=== PATIENT | male | born 1965 | race American Indian/Alaskan Native ===

== ENCOUNTER 2016-10-18 23:39 | Inpatient (IN) | payer OTHER ==
[~2016-10-18] VITALS: Ht 170.2 cm; Wt 73.3 kg
--- NOTE | 2016-10-18 23:42 | ERA ---
ER Documentation Chief Complaint Date/Time DATE: 10/18/16 TIME: 23:41 Chief Complaint Suicidal ideation HPI The patient is a 51-year-old male, presenting to the ER because of suicidal ideation. He took 28 tablets of Seroquel 300 mg with alcohol about 45 minutes prior to arrival to kill himself. He was recently hospitalized at psychiatric hospital about 2 weeks ago for suicidal ideation. He denies headache, neck pain , chest pain, dyspnea, abdominal pain, vomiting, dysuria, diarrhea. He denies auditory, visual hallucination, homicidal ideation. He smokes, drinks, denies illicit Past medical history: Bipolar, seizure disorder Past surgical history:None ROS All systems reviewed and are negative except as per history of present illness. Allergies Allergies: Coded Allergies: No Known Allergy (Unverified , 10/19/16) Physical Exam Vitals Vital Signs Date Time Temp Pulse Resp B/P Pulse Ox O2 Delivery O2 Flow Rate FiO2 10/19/16 04:20 98.4 84 20 118/80 100 Room Air 10/19/16 02:32 81 17 122/77 97 Room Air 10/18/16 23:52 98.4 73 20 148/93 100 Physical Exam Const: No acute distress. Head: Atraumatic. Eyes: Normal Conjunctiva. ENT: Normal External Ears, Nose and Mouth. Neck: Full range of motion. No meningismus. Resp: Clear to auscultation bilaterally. Cardio: Regular rate and rhythm, no murmurs. Abd: Soft, non distended, normal bowel sounds, non tender. Skin: No petechiae or rashes. Back: No midline or flank tenderness. Ext: No cyanosis, or edema. Neur: Awake and alert. No focal deficit Psych: Depressed and suicidal Result Diagram: 10/19/16 0001 10/19/16 0001 Results 24 hrs Laboratory Tests Test 10/19/16 00:01 10/19/16 00:10 White Blood Count 9.010^3/ul Red Blood Count 4.3810^6/ul Hemoglobin 13.7g/dl Hematocrit 38.9% Mean Corpuscular Volume 88.8fl Mean Corpuscular Hemoglobin 31.3pg Mean Corpuscular Hemoglobin Concent 35.2g/dl Red Cell Distribution Width 12.7% Platelet Count 76389^3/UL Mean Platelet Volume 9.9fl Neutrophils % 76.7% Lymphocytes % 17.3% Monocytes % 3.5% Eosinophils % 2.0% Basophils % 0.3% Nucleated Red Blood Cells % 0.0/100WBC Neutrophils # 6.910^3/ul Lymphocytes # 1.610^3/ul Monocytes # 0.310^3/ul Eosinophils # 0.210^3/ul Basophils # 0.010^3/ul Nucleated Red Blood Cells # 0.010^3/ul Prothrombin Time 12.2Sec Prothrombin Time Ratio 1.0 INR International Normalized Ratio 0.91 Activated Partial Thromboplast Time 24.1Sec Sodium Level 137mmol/L Potassium Level 3.9mmol/L Chloride Level 102mmol/L Carbon Dioxide Level 24mmol/L Anion Gap 15 Blood Urea Nitrogen 15mg/dl Creatinine 0.65mg/dl Glucose Level 96mg/dl Calcium Level 8.9mg/dl Total Bilirubin 0.1mg/dl Direct Bilirubin 0.00mg/dl Indirect Bilirubin 0.1mg/dl Aspartate Amino Transf (AST/SGOT) 32IU/L Alanine Aminotransferase (ALT/SGPT) 47IU/L Alkaline Phosphatase 73IU/L Total Protein 7.4g/dl Albumin 4.2g/dl Globulin 3.20g/dl Albumin/Globulin Ratio 1.31 Salicylates Level < 1.0mg/dl Acetaminophen Level < 10.0ug/ml Ethyl Alcohol Level 39.0mg/dl Urine Color LT. YELLOW Urine Clarity CLEAR Urine pH 5.5 Urine Specific [place] 1.010 Urine Ketones NEGATIVE Urine Nitrite NEGATIVE Urine Bilirubin NEGATIVE Urine Urobilinogen 0.2 E.U./dL Urine Leukocyte Esterase NEGATIVE Urine Microscopic RBC 5-10/HPF Urine Microscopic WBC 0-2/HPF Urine Hemoglobin 1+ Urine Glucose NEGATIVE% Urine Total Protein NEGATIVE Urine Opiates Screen Negative Urine Barbiturates Negative Phenytoin (Dilantin) Level 13.2ug/ml Urine Amphetamines Screen Negative Urine Benzodiazepines Screen Negative Urine Cocaine Screen Negative Urine Cannabinoids Negative Current Medications Medications (Trade) Dose Ordered Sig/Valdo Route PRN Reason Start Time Stop Time Status Last Admin Dose Admin Charcoal/Sorbitol (Actidose (Sorbitol)) 50 gm ONCE ONCE PO 10/19/16 00:00 10/19/16 00:01 DC 10/19/16 00:04 Ondansetron HCl (Zofran Inj) 4 mg ONCE STAT IV 10/18/16 23:43 10/18/16 23:44 DC 10/19/16 00:04 Ondansetron HCl (Zofran Inj) 4 mg STK-MED ONCE .ROUTE 10/18/16 23:45 10/18/16 23:46 DC Procedures/MDM EKG: Read by emergency physician 11:58 PM Rate/Rhythm: Normal Sinus Rhythm 74 beats/min QRS, ST, T-waves: No ST elevation, no T inversion Impression: normal EKG EKG: Read by emergency physician 1:04 AM Rate/Rhythm: Normal Sinus Rhythm 79 beats/min QRS, ST, T-waves: No ST elevation, no T inversion Impression: normal EKG MEDICAL MAKING DECISION: The patient is a 51-year-old male, presenting with acute intestinal overdose of Seroquel, acute suicidal ideation, acute alcohol abuse. He was treated immediately with charcoal 50 g p.o. upon arrival, 1 L normal saline, Zofran 4 mg IV with good response. The differential diagnoses considered include but are not limited to decompensated psychiatric illness, drug-induced psychosis, psychosis, anxiety, depression Consultation: I discussed the patient with poison control who recommended admission for observation Departure Diagnosis: Primary Impression: Intentional drug overdose Additional Impressions: Suicide attempt by substance overdose Alcohol abuse Anemia Condition: Stable Comments I discussed the findings with the patient. I discussed the patient with the on- call hospitalist Dr. Silva. who was made aware of the lab, the treatment, the patient condition. The patient is admitted to telemetry The patient's blood pressure was elevated (>120/80) but appears stable without evidence of hypertension emergency or urgency. The patient was counseled about the risks of hypertension and urged to pursue outpatient monitoring and therapy within a week with their primary care physician. CASANDRA OAKLEY MD Oct 18, 2016 23:42
[2016-10-18] MEDS ORDERED: ONDANSETRON 4 MG INJ IV STA (23:43)
[2016-10-18] MEDS ORDERED: ONDANSETRON 4 MG INJ ONE (23:45)
[2016-10-19] VITALS (11 sets, daily range): BP systolic 140–162; BP diastolic 73–79; PULSE 57–74; RESP 17–20; TEMP 98.4; Ht 170.2 cm; Wt 73.3 kg
[2016-10-19] MEDS ORDERED: CHARCOAL/SORBITOL 50 GM/240 ML BTL PO ONE
[2016-10-19 00:14] LABS: ADD SCAN DIFF NO; BASOPHILS % 0.3 % (0.0-2.0); EOSINOPHILS # 0.2 10^3/ul (0.0-0.5); HEMATOCRIT 38.9 % (42.0-52.0); HEMOGLOBIN 13.7 g/dl (14.0-18.0); LYMPHOCYTES # 1.6 10^3/ul (0.8-2.9); LYMPHOCYTES % 17.3 % (15.0-51.0); MEAN CORPUSCULAR HEMOGLOBIN 31.3 pg (29.0-33.0); MEAN CORPUSCULAR HGB CONC 35.2 g/dl (32.0-37.0); MEAN CORPUSCULAR VOLUME 88.8 fl (82.0-101.0); MEAN PLATELET VOLUME 9.9 fl (7.4-10.4); MONOCYTE # 0.3 10^3/ul (0.3-0.9); MONOCYTES % 3.5 % (0.0-11.0); NEUTROPHIL # 6.9 10^3/ul (1.6-7.5); NEUTROPHILS % 76.7 % (39.0-77.0); PLATELET COUNT 177 10^3/UL (140-415); RED BLOOD COUNT 4.38 10^6/ul (4.70-6.10); RED CELL DISTRIBUTION WIDTH 12.7 % (11.5-14.5)
[2016-10-19 00:25] LABS: ADD UMIC YES; URINE BILIRUBIN (Dip) NEGATIVE (NEGATIVE); URINE BLOOD (Dip) 1+ (NEGATIVE); URINE COLOR LT. YELLOW (YELLOW); URINE GLUCOSE (Dip) NEGATIVE (NEGATIVE); URINE KETONES (Dip) NEGATIVE (NEGATIVE); URINE LEUKOCYTE ESTERASE (Dip) NEGATIVE (NEGATIVE); URINE NITRITE (Dip) NEGATIVE (NEGATIVE); URINE TOTAL PROTEIN (Dip) NEGATIVE (NEGATIVE); URINE UROBILINOGEN (Dip) 0.2 E.U./dL (0.1-1.0)
[2016-10-19 00:28] LABS: INR 0.91; PROTIME 12.2 Sec (12.2-14.2)
[2016-10-19 00:29] LABS: PARTIAL THROMBOPLASTIN TIME 24.1 Sec (25.0-35.0)
[2016-10-19 00:58] LABS: ALBUMIN 4.2 g/dl (3.3-4.9)
[2016-10-19 00:59] LABS: CHLORIDE 102 mmol/L (97-110); POTASSIUM 3.9 mmol/L (3.5-5.1); SODIUM 137 mmol/L (135-144)
[2016-10-19 01:01] LABS: ALBUMIN/GLOBULIN RATIO 1.31; ANION GAP 15 (8-16); ASPARTATE AMINO TRANSFERASE 32 IU/L (15-46); BILIRUBIN,INDIRECT 0.1 mg/dl (0-1.1); BILIRUBIN,TOTAL 0.1 mg/dl (0.2-1.3); CARBON DIOXIDE 24 mmol/L (21-31); CREATININE 0.65 mg/dl (0.61-1.24); TOTAL PROTEIN 7.4 g/dl (6.1-8.1)
[2016-10-19 01:02] LABS: ALANINE AMINOTRANSFERASE 47 IU/L (13-69); ALKALINE PHOSPHATASE 73 IU/L (42-121); BLOOD UREA NITROGEN 15 mg/dl (7-20); CALCIUM 8.9 mg/dl (8.4-10.2); GLUCOSE 96 mg/dl (70-220)
[2016-10-19 01:09] LABS: ACETAMINOPHEN < 10.0 ug/ml (10.0-30.0); SALICYLATE < 1.0 mg/dl (5.0-30.0)
[2016-10-19 01:10] LABS: BARBITURATES Negative (NEGATIVE); BENZODIAZEPINES Negative (NEGATIVE); CANNABINOIDS Negative (NEGATIVE); COCAINE Negative (NEGATIVE); OPIATES Negative (NEGATIVE)
[2016-10-19] MEDS ORDERED: ACETAMINOPHEN 650 MG SUPP PR PRN (07:30)
[2016-10-19] MEDS ORDERED: NACL 0.9% 3 ML SYG IV SCH (07:30)
[2016-10-19] MEDS ORDERED: ONDANSETRON 4 MG INJ IV PRN (07:30)
[2016-10-19] MEDS ORDERED: PHEN300C4 PO (08:37)
[2016-10-19] MEDS ORDERED: MIRT30TA5 PO (08:37)
[2016-10-19] MEDS ORDERED: RISP2TAB3 PO (08:37)
[2016-10-19] MEDS ORDERED: ATOR10TA65 PO (08:37)
[2016-10-19] MEDS ORDERED: GABA-526 PO (08:43)
[2016-10-19] MEDS ORDERED: CITA20TA6 PO (08:43)
[2016-10-19] MEDS ORDERED: IBUP-1542 PO (08:43)
[2016-10-19] MEDS ORDERED: LISI10TA2 PO (08:43)
[2016-10-19] MEDS ORDERED: QUET300T13 PO (08:43)
[2016-10-19] MEDS: DEXTROSE 5%-0.45% NACL 1,000 ML IV SCH ×3 (09:58→20:36)
[2016-10-19] MEDS: FAMOTIDINE 20 MG INJ IV SCH ×2 (09:58→20:35)
--- NOTE | 2016-10-19 10:54 | RADRPT ---
PROCEDURE: XR Chest. CLINICAL INDICATION: Chest pain TECHNIQUE: PA and lateral chest x-ray. COMPARISON: None. FINDINGS: No acute infiltrate, pleural effusion or pneumothorax is identified. The cardiomediastinal silhouet te is unremarkable. The osseous structures are unremarkable. IMPRESSION: 1. No evidence of acute cardiopulmonary process. RPTAT: QQ .Mikey Valencia MD, MD Date Time Electronically viewed and signed by .Mikey Valencia MD, on 10/19/2016 10:54 .R/
[2016-10-19] MEDS ORDERED: ACETAMINOPHEN 325 MG TAB PO PRN (14:00)
[2016-10-19] MEDS: MIRTAZAPINE 15 MG TAB PO PRN (20:33)
--- NOTE | 2016-10-19 23:11 | HP ---
Date/Time of Note Date/Time of Note DATE: 10/19/16 TIME: 23:11 Assessment/Plan VTE Prophylaxis VTE Prophylaxis Intervention: SCD's Lines/Catheters IV [facility]ter Type (from [facility] Peripheral IV Urinary Cath still in place: No Assessment/Plan Assessment/Plan IMPRESSION 1. Suicide Attempt 2. Bipolar Disorder 3. Depression 4. HTN PLAN 1:1 sitter Telepsych consult Monitor labs and vitals closely Transfer to inpt psych facility when medically cleared HPI/ROS Admit Date/Time Admit Date/Time Oct 19, 2016 at 02:14 Hx of Present Illness The patient is a 51-year-old male, presenting to the ER because of suicidal ideation. He took 28 tablets of Seroquel 300 mg with alcohol about 45 minutes prior to arrival to kill himself. He was recently hospitalized at psychiatric hospital about 2 weeks ago for suicidal ideation. He denies headache, neck pain , chest pain, dyspnea, abdominal pain, vomiting, dysuria, diarrhea. He denies auditory, visual hallucination, homicidal ideation. He smokes, drinks, denies illicit PMH/Family/Social Social History Smoking Status: Current every day smoker Exam/Review of Systems Vital Signs Vitals Vital Signs Date Time Temp Pulse Resp B/P Pulse Ox O2 Delivery O2 Flow Rate FiO2 10/19/16 20:23 68 10/19/16 18:56 98.6 20 154/77 97 10/19/16 06:15 Room Air Exam Constitutional: other (Sleepy, but arousable. No distress) Psych: depression, suicidal Eyes: EOMI, PERRL Respiratory: clear to auscultation, normal air movement Cardiovascular: nl pulses, regular rate and rhythm Gastrointestinal: non-tender, soft Extremities: normal pulses Labs Result Diagram: 10/19/16 0001 10/19/16 0001 Medications Medications Current Medications Dextrose/Sodium Chloride (D5-1/2ns) 1,000 ml @ 100 mls/hr Q10H IV Last administered on 10/19/16t 20:36; Admin Dose 100 MLS/HR; Start 10/19/16 at 07:29 Ondansetron HCl (Zofran Inj) 4 mg Q6H PRN IV NAUSEA AND/OR VOMITING; Start 10/19 at 07:30 Acetaminophen (Tylenol Supp) 650 mg Q6H PRN [place] PAIN LEVEL 1-3 OR FEVER; Start 10/19/16 at 07:30 Famotidine (Pepcid Iv) 20 mg Q12 IV Last administered on 10/19/16 20:35; Admin Dose 20 MG; Start 10/19/16 at 09:00 Acetaminophen (Tylenol Tab) 650 mg Q4H PRN PO PAIN AND OR ELEVATED TEMP Last administered on 10/19/16 14:12; Admin Dose 650 MG; Start 10/19/16 at 14:00 Mirtazapine (Remeron) 30 mg QHS PRN PO SLEEP Last administered on 10/19/16 20: 33; Admin Dose 30 MG; Start 10/19/16 at 20:30 JOHN DUNBAR MD Oct 19, 2016 23:11
[2016-10-20] VITALS (7 sets, daily range): BP systolic 104–155; BP diastolic 58–84; PULSE 53–77; RESP 19–20
[2016-10-20 07:39] LABS: ADD SCAN DIFF NO
[2016-10-20 07:48] LABS: BASOPHILS % 0.3 % (0.0-2.0); EOSINOPHILS # 0.2 10^3/ul (0.0-0.5); EOSINOPHILS % 2.8 % (0.0-7.0); HEMOGLOBIN 14.1 g/dl (14.0-18.0); LYMPHOCYTES # 1.4 10^3/ul (0.8-2.9); MEAN CORPUSCULAR HEMOGLOBIN 30.7 pg (29.0-33.0); MEAN CORPUSCULAR HGB CONC 34.4 g/dl (32.0-37.0); MEAN CORPUSCULAR VOLUME 89.1 fl (82.0-101.0); MONOCYTE # 0.5 10^3/ul (0.3-0.9); MONOCYTES % 7.1 % (0.0-11.0); NEUTROPHIL # 4.6 10^3/ul (1.6-7.5); NEUTROPHILS % 68.5 % (39.0-77.0); PLATELET COUNT 197 10^3/UL (140-415); WHITE BLOOD COUNT 6.7 10^3/ul (4.8-10.8)
[2016-10-20 08:25] LABS: ALBUMIN 3.7 g/dl (3.3-4.9)
[2016-10-20 08:26] LABS: POTASSIUM 4.1 mmol/L (3.5-5.1)
[2016-10-20 08:28] LABS: ALBUMIN/GLOBULIN RATIO 1.27; BILIRUBIN,INDIRECT 0.2 mg/dl (0-1.1); BILIRUBIN,TOTAL 0.2 mg/dl (0.2-1.3); CREATININE 0.71 mg/dl (0.61-1.24); PHOSPHORUS 3.4 mg/dl (2.5-4.9); TOTAL PROTEIN 6.6 g/dl (6.1-8.1)
[2016-10-20 08:29] LABS: CALCIUM 8.8 mg/dl (8.4-10.2); MAGNESIUM 1.9 mg/dl (1.7-2.5)
[2016-10-20] MEDS: FAMOTIDINE 20 MG INJ IV SCH ×2 (09:00→20:43)
--- NOTE | 2016-10-20 13:10 | PSY ---
Date/Time of Note Date/Time of Note DATE: 10/20/16 TIME: 16:04 Psychiatric Subjective Eval Consent Pt consented to telemedicine: Yes Subjective Evaluation Patient location: inpatient Chief Complaint: Intentional Intake of Medication, SI History of present illness The patient is a 51 yo male with a self reported ho bipolar do and schizophrenia. He is in the hospital s/p a suicide attempt via OD on seroquel. He reports persistent thoughts to kill self, as well as AH. He is currently not taking any psych meds (besides remeron prn insomnia). Past Psych Hx: Reports numerous admits and suicide attempts. Reports risperidone has helped the most in the past PMHx: epilepsy Meds: now just prnmeds All: none Medical history Problems Medical Problems: (1) Alcohol abuse Status: Acute (2) Anemia Status: Acute (3) Intentional drug overdose Status: Acute (4) Suicide attempt by substance overdose Status: Acute Allergies: Coded Allergies: No Known Allergy (Unverified , 10/19/16) Psychiatric Objective Eval Mental Status Examination: Appearance: Disheveled Eye Contact: Good Psychomotor Activity: Normal Behavior: Cooperative Speech: Clear AFFECT: Blunt Mood: Depressed Though Process: Linear Thought Content: Normal Suicidal: Yes Homicidal: No On 72 hour hold: Yes Orientation: x3 Cognition: Alert Insight: Impared Judgement: Impared Attention Span: Intact Laboratory Results Laboratory Tests Test 10/19/16 00:01 10/19/16 00:10 10/20/16 07:06 White Blood Count 9.010^3/ul 6.710^3/ul Red Blood Count 4.3810^6/ul 4.6010^6/ul Hemoglobin 13.7g/dl 14.1g/dl Hematocrit 38.9% 41.0% Mean Corpuscular Volume 88.8fl 89.1fl Mean Corpuscular Hemoglobin 31.3pg 30.7pg Mean Corpuscular Hemoglobin Concent 35.2g/dl 34.4g/dl Red Cell Distribution Width 12.7% 13.0% Platelet Count 53592^3/UL 66171^3/UL Mean Platelet Volume 9.9fl 10.0fl Neutrophils % 76.7% 68.5% Lymphocytes % 17.3% 21.0% Monocytes % 3.5% 7.1% Eosinophils % 2.0% 2.8% Basophils % 0.3% 0.3% Nucleated Red Blood Cells % 0.0/100WBC 0.0/100WBC Neutrophils # 6.910^3/ul 4.610^3/ul Lymphocytes # 1.610^3/ul 1.410^3/ul Monocytes # 0.310^3/ul 0.510^3/ul Eosinophils # 0.210^3/ul 0.210^3/ul Basophils # 0.010^3/ul 0.010^3/ul Nucleated Red Blood Cells # 0.010^3/ul 0.010^3/ul Prothrombin Time 12.2Sec Prothrombin Time Ratio 1.0 INR International Normalized Ratio 0.91 Activated Partial Thromboplast Time 24.1Sec Sodium Level 137mmol/L 138mmol/L Potassium Level 3.9mmol/L 4.1mmol/L Chloride Level 102mmol/L 106mmol/L Carbon Dioxide Level 24mmol/L 24mmol/L Anion Gap 15 12 Blood Urea Nitrogen 15mg/dl 13mg/dl Creatinine 0.65mg/dl 0.71mg/dl Glucose Level 96mg/dl 98mg/dl Calcium Level 8.9mg/dl 8.8mg/dl Total Bilirubin 0.1mg/dl 0.2mg/dl Direct Bilirubin 0.00mg/dl 0.00mg/dl Indirect Bilirubin 0.1mg/dl 0.2mg/dl Aspartate Amino Transf (AST/SGOT) 32IU/L 22IU/L Alanine Aminotransferase (ALT/SGPT) 47IU/L 36IU/L Alkaline Phosphatase 73IU/L 71IU/L Total Protein 7.4g/dl 6.6g/dl Albumin 4.2g/dl 3.7g/dl Globulin 3.20g/dl 2.90g/dl Albumin/Globulin Ratio 1.31 1.27 Salicylates Level < 1.0mg/dl Acetaminophen Level < 10.0ug/ml Ethyl Alcohol Level 39.0mg/dl Urine Color LT. YELLOW Urine Clarity CLEAR Urine pH 5.5 Urine Specific [place] 1.010 Urine Ketones NEGATIVE Urine Nitrite NEGATIVE Urine Bilirubin NEGATIVE Urine Urobilinogen 0.2 E.U./dL Urine Leukocyte Esterase NEGATIVE Urine Microscopic RBC 5-10/HPF Urine Microscopic WBC 0-2/HPF Urine Hemoglobin 1+ Urine Glucose NEGATIVE% Urine Total Protein NEGATIVE Urine Opiates Screen Negative Urine Barbiturates Negative Phenytoin (Dilantin) Level 13.2ug/ml Urine Amphetamines Screen Negative Urine Benzodiazepines Screen Negative Urine Cocaine Screen Negative Urine Cannabinoids Negative Phosphorus Level 3.4mg/dl Magnesium Level 1.9mg/dl Assessment and Plan Assessment/Diagnosis [place] I: bipolar do, psychosis nos r/o schizophrenia Recommendation/Plan Medication Management 51 yo male s/p suicide attempt via OD on seroquel. He still has suicidal thoughts and is psychotic and depressed. No lindsey.He is in good control. He appears to have mentally recovered from seroquel OD (in terms of alertness etc.) Plan: -Would first start antiepileptic givne low risk of antipsychotic lowering seizure threshold -would then begin antipsychotic, for now would prefer abilify 2.5mg for 2d then 5mg, then 10mg after 2 days if he can tolerate this dose -for severe agitation. Abilify 9.75mg IM, q2 hours prn, max 3 doses in 24 hours -continue 1:1 constant observation, admit to inpatient psych CHANTELL SHELDON Oct 20, 2016 13:10
[2016-10-20] MEDS ORDERED: LEVETIRACETAM 500 MG (PMX) 100 ML IVPB SCH (13:30)
[2016-10-20] MEDS: ARIPIPRAZOLE 5 MG TAB PO SCH (14:17)
[2016-10-20] MEDS: DEXTROSE 5%-0.45% NACL 1,000 ML IV SCH ×4 (15:29→23:29)
[2016-10-20] MEDS: PHENYTOIN 100 MG CAP PO SCH (20:43)
[2016-10-20] MEDS: MIRTAZAPINE 15 MG TAB PO PRN (20:43)
[2016-10-21 06:03] LABS: ADD SCAN DIFF NO
[2016-10-21 06:10] LABS: BASOPHILS % 0.6 % (0.0-2.0); EOSINOPHILS # 0.2 10^3/ul (0.0-0.5); EOSINOPHILS % 4.5 % (0.0-7.0); HEMATOCRIT 41.1 % (42.0-52.0); HEMOGLOBIN 14.1 g/dl (14.0-18.0); LYMPHOCYTES # 1.1 10^3/ul (0.8-2.9); LYMPHOCYTES % 31.4 % (15.0-51.0); MEAN CORPUSCULAR HEMOGLOBIN 30.5 pg (29.0-33.0); MEAN CORPUSCULAR HGB CONC 34.3 g/dl (32.0-37.0); MEAN CORPUSCULAR VOLUME 88.8 fl (82.0-101.0); MEAN PLATELET VOLUME 10.4 fl (7.4-10.4); MONOCYTE # 0.3 10^3/ul (0.3-0.9); MONOCYTES % 9.2 % (0.0-11.0); NEUTROPHIL # 1.9 10^3/ul (1.6-7.5); RED BLOOD COUNT 4.63 10^6/ul (4.70-6.10); RED CELL DISTRIBUTION WIDTH 12.9 % (11.5-14.5); WHITE BLOOD COUNT 3.6 10^3/ul (4.8-10.8)
[2016-10-21 06:21] LABS: ALBUMIN 3.9 g/dl (3.3-4.9)
[2016-10-21 06:22] LABS: POTASSIUM 4.1 mmol/L (3.5-5.1)
[2016-10-21 06:24] LABS: ALBUMIN/GLOBULIN RATIO 1.39; BILIRUBIN,INDIRECT 0.3 mg/dl (0-1.1); BILIRUBIN,TOTAL 0.3 mg/dl (0.2-1.3); CREATININE 0.69 mg/dl (0.61-1.24); TOTAL PROTEIN 6.7 g/dl (6.1-8.1)
[2016-10-21 06:25] LABS: CALCIUM 9.2 mg/dl (8.4-10.2)
[2016-10-21 08:29] LABS: PLATELET COUNT 123 10^3/UL (140-415)
[2016-10-21 08:30] LABS: ADD SCAN DIFF NO; BASOPHILS % 0.4 % (0.0-2.0); EOSINOPHILS # 0.2 10^3/ul (0.0-0.5); EOSINOPHILS % 4.2 % (0.0-7.0); HEMATOCRIT 44.2 % (42.0-52.0); HEMOGLOBIN 14.9 g/dl (14.0-18.0); LYMPHOCYTES # 1.3 10^3/ul (0.8-2.9); LYMPHOCYTES % 25.1 % (15.0-51.0); MEAN CORPUSCULAR HEMOGLOBIN 30.2 pg (29.0-33.0); MEAN CORPUSCULAR HGB CONC 33.7 g/dl (32.0-37.0); MEAN CORPUSCULAR VOLUME 89.7 fl (82.0-101.0); MEAN PLATELET VOLUME 10.2 fl (7.4-10.4); MONOCYTE # 0.5 10^3/ul (0.3-0.9); MONOCYTES % 9.7 % (0.0-11.0); NEUTROPHIL # 3.2 10^3/ul (1.6-7.5); NEUTROPHILS % 60.4 % (39.0-77.0); PLATELET COUNT 186 10^3/UL (140-415); RED BLOOD COUNT 4.93 10^6/ul (4.70-6.10); RED CELL DISTRIBUTION WIDTH 13.1 % (11.5-14.5); WHITE BLOOD COUNT 5.3 10^3/ul (4.8-10.8)
[2016-10-21] MEDS: PHENYTOIN 100 MG CAP PO SCH ×3 (08:44→21:30)
[2016-10-21] MEDS: ARIPIPRAZOLE 5 MG TAB PO SCH (08:44)
[2016-10-21] MEDS: DEXTROSE 5%-0.45% NACL 1,000 ML IV SCH ×2 (08:48→19:29)
[2016-10-21] MEDS: FAMOTIDINE 20 MG INJ IV SCH (08:48)
--- NOTE | 2016-10-21 09:23 | PN ---
DATE: 10/20/2016 SUBJECTIVE: The patient just finished evaluation by tele psychiatrist. No acute events overnight. On diet now. OBJECTIVE: VITAL SIGNS: Stable. PHYSICAL EXAMINATION: GENERAL: The patient is lying in bed, no acute distress. HEENT: Pupils equal, round, reactive to light. Extraocular muscles intact. NECK: Supple, no thyromegaly. LUNGS: Clear to auscultation bilaterally. CARDIOVASCULAR: S1, S2 heard. No rubs or gallops. ABDOMEN: Soft, nontender, nondistended. Normal bowel sounds. No rebound or guarding. MUSCULOSKELETAL: No lower extremity edema bilaterally. NEUROLOGIC: No focal deficits. LABORATORY DATA: Metabolic panel was normal. CBC is normal. ASSESSMENT AND PLAN: This is a 51-year-old male with prior history of bipolar disorder, depression and hypertension who presented with suicide ideation after drug overdose. 1. Suicide attempt suicide ideation is status post overdose. The patient appears more alert now. Continue follow recommendations from both tele neurologist and also from Poison Control. The patien t is on IV fluids. Follow up labs in the morning. 2. History of bipolar disorder again. The patient was consciously put back on Remeron. Continue t o monitor for now. Follow up with psychiatry recommendations. 3. History of hypertension. Blood pressure stable. Continue current medications for now. Add Hyd ralazine p.r.n. 4. Gastrointestinal prophylaxis. Pepcid. 5. Deep venous thrombosis prophylaxis. Sequential compression devices. We will continue to follow . Dictated By: GM LAIRD Conf#: [id number] DID#: [id number]
--- NOTE | 2016-10-21 11:55 | PN ---
Date/Time of Note Date/Time of Note DATE: 10/21/16 TIME: 11:54 Assessment/Plan VTE Prophylaxis VTE Prophylaxis Intervention: SCD's Lines/Catheters [facility] Peripheral IV Urinary Cath still in place: No Assessment/Plan Assessment/Plan 1. Suicide attempt suicide ideation is status post overdose. The patient appears more alert now. Continue follow recommendations from both tele neurologist and also from Poison Control. The patient is on IV fluids. Follow up labs in the morning. 2. History of bipolar disorder again. The patient was consciously put back on Remeron. Continue to monitor for now. Follow up with psychiatry recommendations. 3. History of hypertension. Blood pressure stable. Continue current medications for now. Add Hydralazine p.r.n. 4. Gastrointestinal prophylaxis. Pepcid. 5. Deep venous thrombosis prophylaxis. Sequential compression devices. We will continue to follow. Subjective 24 Hr Interval Summary Free Text/Dictation stable, no acute events overnight Exam/Review of Systems Vital Signs Vitals Vital Signs Date Time Temp Pulse Resp B/P Pulse Ox O2 Delivery O2 Flow Rate FiO2 10/20/16 15:36 98.3 62 20 139/82 97 10/19/16 06:15 Room Air Intake and Output 10/20/16 10/20/16 10/21/16 15:00 23:00 07:00 Intake Total 700 ml 2230 ml Balance 700 ml 2230 ml Exam GENERAL: The patient is lying in bed, no acute distress. HEENT: Pupils equal, round, reactive to light. Extraocular muscles intact. NECK: Supple, no thyromegaly. LUNGS: Clear to auscultation bilaterally. CARDIOVASCULAR: S1, S2 heard. No rubs or gallops. ABDOMEN: Soft, nontender, nondistended. Normal bowel sounds. No rebound or guarding. MUSCULOSKELETAL: No lower extremity edema bilaterally. NEUROLOGIC: No focal deficits. Results Result Diagram: 10/21/16 0725 10/21/16 0520 Results 24 hrs Laboratory Tests Test 10/21/16 05:20 10/21/16 07:25 Sodium Level 138 Potassium Level 4.1 Chloride Level 103 Carbon Dioxide Level 24 Anion Gap 15 Blood Urea Nitrogen 11 Creatinine 0.69 Glucose Level 87 Calcium Level 9.2 Total Bilirubin 0.3 Direct Bilirubin 0.00 Indirect Bilirubin 0.3 Aspartate Amino Transf (AST/SGOT) 22 Alanine Aminotransferase (ALT/SGPT) 34 Alkaline Phosphatase 78 Total Protein 6.7 Albumin 3.9 Globulin 2.80 Albumin/Globulin Ratio 1.39 White Blood Count 5.3 # Red Blood Count 4.93 Hemoglobin 14.9 Hematocrit 44.2 Mean Corpuscular Volume 89.7 Mean Corpuscular Hemoglobin 30.2 Mean Corpuscular Hemoglobin Concent 33.7 Red Cell Distribution Width 13.1 Platelet Count 186 # Mean Platelet Volume 10.2 Neutrophils % 60.4 Lymphocytes % 25.1 Monocytes % 9.7 Eosinophils % 4.2 Basophils % 0.4 Nucleated Red Blood Cells % 0.0 Neutrophils # 3.2 Lymphocytes # 1.3 Monocytes # 0.5 Eosinophils # 0.2 Basophils # 0.0 Nucleated Red Blood Cells # 0.0 Medications Medications Current Medications Dextrose/Sodium Chloride (D5-1/2ns) 1,000 ml @ 100 mls/hr Q10H IV Last administered on 10/20/16 15:51; Admin Dose 100 MLS/HR; Start 10/19/16 at 07:29 Ondansetron HCl (Zofran Inj) 4 mg Q6H PRN IV NAUSEA AND/OR VOMITING; Start 10/19 at 07:30 Acetaminophen (Tylenol Supp) 650 mg Q6H PRN [place] PAIN LEVEL 1-3 OR FEVER; Start 10/19/16 at 07:30 Famotidine (Pepcid Iv) 20 mg Q12 IV Last administered on 10/20/16 20:43; Admin Dose 20 MG; Start 10/19/16 at 09:00 Acetaminophen (Tylenol Tab) 650 mg Q4H PRN PO PAIN AND OR ELEVATED TEMP Last administered on 10/19/16 14:12; Admin Dose 650 MG; Start 10/19/16 at 14:00 Mirtazapine (Remeron) 30 mg QHS PRN PO SLEEP Last administered on 10/20/16 20: 43; Admin Dose 30 MG; Start 10/19/16 at 20:30 Aripiprazole (Abilify) 2.5 mg DAILY PO Last administered on 10/21/16 08:44; Admin Dose 2.5 MG; Start 10/20/16 at 13:30; Stop 10/22/16 at 10:30 Aripiprazole (Abilify) 5 mg DAILY PO ; Start 10/23/16 at 09:00; Stop 10/25/16 at 08:00 Aripiprazole (Abilify) 10 mg DAILY PO ; Start 10/25/16 at 09:00 Miscellaneous Information Patients own medicat... BID@ XX ; Start 10/20/16 at 16:00 Phenytoin (Dilantin) 100 mg TID PO Last administered on 10/21/16t 08:44; Admin Dose 100 MG; Start 10/20/16 at 21:00 MARITA SANTO MD Oct 21, 2016 11:55
[2016-10-21] MEDS ORDERED: FAMOTIDINE 20 MG TAB PO SCH (21:00)
--- NOTE | 2016-10-22 23:33 | DS ---
DATE OF ADMISSION: 10/19/2016 DATE OF DISCHARGE: 10/21/2016 Please note that the patient was eloped on 10/21/2016 at 10:50 p.m. HOSPITAL COURSE: This is a 51-year-old male who has a past medical history of bipolar disorder, dep ression and hypertension. The patient presented with worsening depression symptoms and intentional suicidal overdose. He took 28 tablets of Seroquel 300 mg with alcohol about 45 minutes prior to the arrival. He was recently hospitalized at the psychiatric hospital 2 weeks ago for suicidal ideatio n. The patient denies any other complaints. He was hemodynamically stable. His labs were also unr emarkable. He gets admitted to the med/surg floor where he had a psychiatric evaluation. The patient was in the process of setting up a mental health transfer. He also had a 1:1 sitter, but o n 10/21/2016 in the after-hours around 10 p.m. the patient was eloped from the floor. DISPOSITION: Please note that the patient is eloped from the floor during this hospitalization. Charge nurse and the nursing supervisor floor assembly has been informed by the on-call nurse at that time. Please note that the patient is eloped during this hospitalization in after hours at 10 p.m. on 09/2016. Dictated By: MARITA SANTO MD, KP/NTS Conf#: [id number] DID#: [id number] CC: JOHN DUNBAR MD;*EndCC*
[2016-10-23] MEDS ORDERED: ARIPIPRAZOLE 5 MG TAB PO SCH (09:00)
[2016-10-25] MEDS ORDERED: ARIPIPRAZOLE 10 MG TAB PO SCH (09:00)
== END 2016-10-21 22:05 | disposition left against medical advice (07) | DRG 918 ==
LOC: E/R 23:39 → MS4 10-19 02:14 → MS2 10-19 05:48
PROVIDERS: ADMIT Internal Medicine; ATTEND Internal Medicine
DX: T43.592A Poisoning by other antipsychotics and neuroleptics, intentional self-harm, initial encounter (principal); R45.851 Suicidal ideations; Y92.89 Other specified places as the place of occurrence of the external cause; G40.909 Epilepsy, unspecified, not intractable, without status epilepticus; D64.9 Anemia, unspecified; F32.9 Major depressive disorder, single episode, unspecified; I10 Essential (primary) hypertension; F17.210 Nicotine dependence, cigarettes, uncomplicated; F10.10 Alcohol abuse, uncomplicated; Y90.1 Blood alcohol level of 20-39 mg/100 ml
CPT/HCPCS: 36415; 71020; 80053; 80185; 80306; 80307; 81001; 81003; 83735; 84100; 85025; 85610; 85730; 93005; 96374; J1953; J2405; J7042

== ENCOUNTER 2016-10-25 07:23 | Emergency (ER) | payer OTHER ==
[~2016-10-25] VITALS: Ht 170.2 cm; Wt 70.0 kg
[~2016-10-25 07:23] MED LIST: ATOR10TA65 PO; CITA20TA6 PO; GABA-526 PO; IBUP-1542 PO; LISI10TA2 PO; MIRT30TA5 PO; PHEN300C4 PO; QUET300T13 PO; RISP2TAB3 PO
[2016-10-25 07:29] VITALS: Ht 170.2 cm; Wt 70.0 kg
[2016-10-25] MEDS ORDERED: CHARCOAL/SORBITOL 50 GM/240 ML BTL PO ONE (08:00)
[2016-10-25 08:17] LABS: ADD SCAN DIFF NO
[2016-10-25 08:25] LABS: ADD UMIC YES; URINE BILIRUBIN (Dip) NEGATIVE (NEGATIVE); URINE BLOOD (Dip) 1+ (NEGATIVE); URINE COLOR LT. YELLOW (YELLOW); URINE GLUCOSE (Dip) NEGATIVE (NEGATIVE); URINE KETONES (Dip) NEGATIVE (NEGATIVE); URINE LEUKOCYTE ESTERASE (Dip) NEGATIVE (NEGATIVE); URINE NITRITE (Dip) NEGATIVE (NEGATIVE); URINE TOTAL PROTEIN (Dip) TRACE (NEGATIVE); URINE UROBILINOGEN (Dip) 0.2 E.U./dL (0.1-1.0)
[2016-10-25 08:27] LABS: BASOPHILS % 0.3 % (0.0-2.0); EOSINOPHILS # 0.3 10^3/ul (0.0-0.5); EOSINOPHILS % 4.5 % (0.0-7.0); HEMATOCRIT 41.2 % (42.0-52.0); HEMOGLOBIN 14.6 g/dl (14.0-18.0); LYMPHOCYTES # 1.5 10^3/ul (0.8-2.9); LYMPHOCYTES % 25.4 % (15.0-51.0); MEAN CORPUSCULAR HEMOGLOBIN 31.4 pg (29.0-33.0); MEAN CORPUSCULAR HGB CONC 35.4 g/dl (32.0-37.0); MEAN CORPUSCULAR VOLUME 88.6 fl (82.0-101.0); MEAN PLATELET VOLUME 10.7 fl (7.4-10.4); MONOCYTE # 0.5 10^3/ul (0.3-0.9); MONOCYTES % 8.6 % (0.0-11.0); NEUTROPHIL # 3.7 10^3/ul (1.6-7.5); PLATELET COUNT 239 10^3/UL (140-415); RED BLOOD COUNT 4.65 10^6/ul (4.70-6.10); RED CELL DISTRIBUTION WIDTH 12.9 % (11.5-14.5)
[2016-10-25 08:39] LABS: BARBITURATES Negative (NEGATIVE)
[2016-10-25 08:43] LABS: ALBUMIN 4.5 g/dl (3.3-4.9); CHLORIDE 101 mmol/L (97-110); SODIUM 137 mmol/L (135-144)
[2016-10-25 08:44] LABS: BENZODIAZEPINES Negative (NEGATIVE); CANNABINOIDS Negative (NEGATIVE); COCAINE Negative (NEGATIVE); OPIATES Negative (NEGATIVE)
[2016-10-25 08:44] LABS: POTASSIUM 4.2 mmol/L (3.5-5.1)
[2016-10-25 08:45] LABS: CREATININE 0.67 mg/dl (0.61-1.24)
[2016-10-25 08:46] LABS: ALANINE AMINOTRANSFERASE 42 IU/L (13-69); ALBUMIN/GLOBULIN RATIO 1.36; ALKALINE PHOSPHATASE 88 IU/L (42-121); ANION GAP 17 (8-16); ASPARTATE AMINO TRANSFERASE 55 IU/L (15-46); BILIRUBIN,INDIRECT 0.7 mg/dl (0-1.1); BILIRUBIN,TOTAL 0.7 mg/dl (0.2-1.3); BLOOD UREA NITROGEN 16 mg/dl (7-20); CARBON DIOXIDE 23 mmol/L (21-31); GLUCOSE 103 mg/dl (70-220); TOTAL PROTEIN 7.8 g/dl (6.1-8.1)
[2016-10-25 08:52] LABS: ACETAMINOPHEN < 10.0 ug/ml (10.0-30.0); ETHANOL < 10.0 mg/dl; SALICYLATE < 1.0 mg/dl (5.0-30.0)
[2016-10-25 09:25] LABS: ALBUMIN 4.3 g/dl (3.3-4.9); BILIRUBIN,INDIRECT 0.5 mg/dl (0-1.1); BILIRUBIN,TOTAL 0.5 mg/dl (0.2-1.3); TOTAL PROTEIN 7.6 g/dl (6.1-8.1)
--- NOTE | 2016-10-25 13:18 | PSY ---
Date/Time of Note Date/Time of Note DATE: 10/25/16 TIME: 13:13 Psychiatric Subjective Eval Consent Pt consented to telemedicine: Yes Subjective Evaluation Patient location: emergency Chief Complaint: pt bib self with c/o took 26 seroquel at 645 , admits to SI History of present illness 51 yo homeless unemployed male, ob parole, self presenting to ED stating, he took an OD of 30 tabs of Seroquel 300 mg at 7 am. Pt is awake and alert, which makes this story somewhat questionable. He says, he is still depressed and suicidal and hears voices "sometimes". Pt is on Risperidal, Seroquel and Trazodone. he had a similar presentation a day ago but eloped. He denies hi, vh. Says, he feels paranoid. UDS + meth Past psychiatric history multiple inpt Hospitalization: Suicidal Attempt(s) Medical history Problems Medical Problems: (1) Alcohol abuse Status: Acute (2) Anemia Status: Acute (3) Intentional drug overdose Status: Acute (4) Suicide attempt by substance overdose Status: Acute Allergies: Coded Allergies: No Known Allergy (Unverified , 10/25/16) Substance Abuse Substance abuse history: Yes Prior substance abuse treatmen: Yes Social History Marital status: single Level of education: 9th grade DPA/Conservatorship: No Occupation/Alf: unemployed; on parole Psychiatric Objective Eval Review of Systems: Review of Systems: Not Applicable Physical Examination: Physical Examination: Not Applicable Mental Status Examination: Appearance: Disheveled Eye Contact: Good Psychomotor Activity: Normal Behavior: Cooperative Speech: Clear AFFECT: Guarded Mood: Irritable Though Process: Linear Thought Content: Hallucinations Suicidal: Yes Homicidal: No On 72 hour hold: No Orientation: x4 Cognition: Alert Insight: Impared Judgement: Impared Laboratory Results Laboratory Tests Test 10/25/16 07:58 10/25/16 08:00 Urine Color LT. YELLOW Urine Clarity CLEAR Urine pH 5.5 Urine Specific [place] 1.025 Urine Ketones NEGATIVE Urine Nitrite NEGATIVE Urine Bilirubin NEGATIVE Urine Urobilinogen 0.2 E.U./dL Urine Leukocyte Esterase NEGATIVE Urine Microscopic RBC 2-5/HPF Urine Microscopic WBC 0-2/HPF Urine Epithelial Cells RARE Urine Hemoglobin 1+ Urine Glucose NEGATIVE% Urine Total Protein TRACE Urine Opiates Screen Negative Urine Barbiturates Negative Urine Amphetamines Screen POSITIVE Urine Benzodiazepines Screen Negative Urine Cocaine Screen Negative Urine Cannabinoids Negative White Blood Count 6.010^3/ul Red Blood Count 4.6510^6/ul Hemoglobin 14.6g/dl Hematocrit 41.2% Mean Corpuscular Volume 88.6fl Mean Corpuscular Hemoglobin 31.4pg Mean Corpuscular Hemoglobin Concent 35.4g/dl Red Cell Distribution Width 12.9% Platelet Count 38286^3/UL Mean Platelet Volume 10.7fl Neutrophils % 61.0% Lymphocytes % 25.4% Monocytes % 8.6% Eosinophils % 4.5% Basophils % 0.3% Nucleated Red Blood Cells % 0.0/100WBC Neutrophils # 3.710^3/ul Lymphocytes # 1.510^3/ul Monocytes # 0.510^3/ul Eosinophils # 0.310^3/ul Basophils # 0.010^3/ul Nucleated Red Blood Cells # 0.010^3/ul Sodium Level 137mmol/L Potassium Level 4.2mmol/L Chloride Level 101mmol/L Carbon Dioxide Level 23mmol/L Anion Gap 17 Blood Urea Nitrogen 16mg/dl Creatinine 0.67mg/dl Glucose Level 103mg/dl Calcium Level 9.0mg/dl Total Bilirubin 0.5mg/dl Direct Bilirubin 0.00mg/dl Indirect Bilirubin 0.5mg/dl Aspartate Amino Transf (AST/SGOT) 56IU/L Alanine Aminotransferase (ALT/SGPT) 37IU/L Alkaline Phosphatase 94IU/L Total Protein 7.6g/dl Albumin 4.3g/dl Globulin 3.30g/dl Albumin/Globulin Ratio 1.36 Salicylates Level < 1.0mg/dl Acetaminophen Level < 10.0ug/ml Ethyl Alcohol Level < 10.0mg/dl Assessment and Plan Assessment/Diagnosis [place] I: AMPHETAMINE INDUCED PSYCHOSIS. ALCOHOL USE DISORDER. MOOD DISORDER NOS. R/O MALINGERING [place] II: ANTISOCIAL PD [place] III: PER RECORD [place] IV: SEVERE [place] V: GAF 25 Recommendation/Plan Medication Management MONITOR ECG; HOLD SEROQUEL AND RISPERIDONE. Psychotherapy DEFER TO INPT Follow-up/Disposition 5150 FOR DTS; TRANSFER TO INPT PSYCH IF MEDICALLY CLEARED. 5150 Recommendation: Place Hold GARDENIA RODNEY MD Oct 25, 2016 13:18
--- NOTE | 2016-10-25 13:28 | ERA ---
ER Documentation Chief Complaint Date/Time DATE: 10/25/16 TIME: 13:25 Chief Complaint pt bib self with c/o took 26 seroquel at 645 , admits to SI FLETCHER This is a [age]-year-old male who presents to the emergency room after a suicide attempt. The patient states that he took approximately 26 Seroquel tabs around 6:45 AM. He denies any other coingestions with this. He states that he is feeling depressed. The patient came to the ER today for evaluation. He is denying any homicidal ideation. ROS All systems reviewed and are negative except as per history of present illness. Medications Home Meds Reported Medications Ibuprofen* (Ibuprofen*) 600 Mg Tablet, 600 MG PO Q8, TAB 10/19/16 Lisinopril* (Lisinopril*) 10 Mg Tablet, 10 MG PO DAILY, #30 TAB 10/19/16 Quetiapine Fumarate* (Seroquel*) 300 Mg Tablet, 300 MG PO HS, TAB 10/19/16 Gabapentin* (Gabapentin*) 600 Mg Tablet, 600 MG PO TID, #90 TAB 10/19/16 Citalopram Hydrobromide* (Citalopram Hydrobromide*) 20 Mg Tablet, 20 MG PO DAILY , #30 TAB 10/19/16 Atorvastatin (Atorvastatin) 10 Mg Tablet, 10 MG PO DAILY, #30 TAB 10/19/16 Risperidone* (Risperidone*) 2 Mg Tablet, 2 MG PO BID, TAB 10/19/16 Mirtazapine* (Mirtazapine*) 30 Mg Tablet, 30 MG PO HS, TAB 10/19/16 Phenytoin* Sodium Extended (Phenytoin* Sodium Extended) 300 Mg Capsule, 300 MG PO HS, CAP 10/19/16 Allergies Allergies: Coded Allergies: No Known Allergy (Unverified , 10/25/16) PMhx/Soc History of Surgery: No Anesthesia Reaction: No Hx Neurological Disorder: No Hx Respiratory Disorders: No Hx Cardiac Disorders: Yes (HTN) Hx Psychiatric Problems: Yes (Bipolar and Schizophrenia) Hx Miscellaneous Medical Probl: No Hx Alcohol Use: Yes (Beer weekly. Last was yesterday) Hx Substance Use: Yes (ETOH AND TOBACCO) Hx Tobacco Use: Yes (1 pack a day.) Smoking Status: Current every day smoker Physical Exam Vitals Vital Signs Date Time Temp Pulse Resp B/P Pulse Ox O2 Delivery O2 Flow Rate FiO2 10/25/16 13:14 79 18 117/65 100 Room Air 10/25/16 11:45 97.9 80 18 106/62 100 Room Air 10/25/16 10:15 82 18 129/83 100 Room Air 10/25/16 08:46 76 18 118/61 99 Room Air 10/25/16 07:29 97.3 94 16 136/90 98 Physical Exam INITIAL VITAL SIGNS: Reviewed by me GENERAL: The patient has a disheveled appearance, no acute distress HEENT: Pupils equal, round, and reactive to light. EOMI. There is no scleral icterus. NECK: C-spine is soft and supple, there is no meningismus. There is no cervical lymphadenopathy. LUNGS: Clear to auscultation bilaterally. There are no rales, wheezes or rhonchi. HEART: Regular rate and rhythm, no murmurs, clicks, rubs or gallops. ABDOMEN: Soft, non-tender, non-distended. There are bowel sounds in all four quadrants. No rebound or guarding. EXTREMITIES: There is no peripheral cyanosis or edema. No focal swelling or erythema. NEUROLOGICAL: The patient moves all four extremities with 5/5 strength. Cranial nerves II - XII are intact. Normal gait. Alert and oriented to person place and time, no focal neurological deficits SKIN: There is no apparent rash or petechiae. HEME/LYMPHATIC: There is no evidence of excessive bruising or lymphedema. PSYCHIATRIC: The patient does not appear anxious or depressed. Result Diagram: 10/25/16 0800 10/25/16 0800 Results 24 hrs Laboratory Tests Test 10/25/16 07:58 10/25/16 08:00 Urine Color LT. YELLOW Urine Clarity CLEAR Urine pH 5.5 Urine Specific [place] 1.025 Urine Ketones NEGATIVE Urine Nitrite NEGATIVE Urine Bilirubin NEGATIVE Urine Urobilinogen 0.2 E.U./dL Urine Leukocyte Esterase NEGATIVE Urine Microscopic RBC 2-5/HPF Urine Microscopic WBC 0-2/HPF Urine Epithelial Cells RARE Urine Hemoglobin 1+ Urine Glucose NEGATIVE% Urine Total Protein TRACE Urine Opiates Screen Negative Urine Barbiturates Negative Urine Amphetamines Screen POSITIVE Urine Benzodiazepines Screen Negative Urine Cocaine Screen Negative Urine Cannabinoids Negative White Blood Count 6.010^3/ul Red Blood Count 4.6510^6/ul Hemoglobin 14.6g/dl Hematocrit 41.2% Mean Corpuscular Volume 88.6fl Mean Corpuscular Hemoglobin 31.4pg Mean Corpuscular Hemoglobin Concent 35.4g/dl Red Cell Distribution Width 12.9% Platelet Count 44645^3/UL Mean Platelet Volume 10.7fl Neutrophils % 61.0% Lymphocytes % 25.4% Monocytes % 8.6% Eosinophils % 4.5% Basophils % 0.3% Nucleated Red Blood Cells % 0.0/100WBC Neutrophils # 3.710^3/ul Lymphocytes # 1.510^3/ul Monocytes # 0.510^3/ul Eosinophils # 0.310^3/ul Basophils # 0.010^3/ul Nucleated Red Blood Cells # 0.010^3/ul Sodium Level 137mmol/L Potassium Level 4.2mmol/L Chloride Level 101mmol/L Carbon Dioxide Level 23mmol/L Anion Gap 17 Blood Urea Nitrogen 16mg/dl Creatinine 0.67mg/dl Glucose Level 103mg/dl Calcium Level 9.0mg/dl Total Bilirubin 0.5mg/dl Direct Bilirubin 0.00mg/dl Indirect Bilirubin 0.5mg/dl Aspartate Amino Transf (AST/SGOT) 56IU/L Alanine Aminotransferase (ALT/SGPT) 37IU/L Alkaline Phosphatase 94IU/L Total Protein 7.6g/dl Albumin 4.3g/dl Globulin 3.30g/dl Albumin/Globulin Ratio 1.36 Salicylates Level < 1.0mg/dl Acetaminophen Level < 10.0ug/ml Ethyl Alcohol Level < 10.0mg/dl Current Medications Medications (Trade) Dose Ordered Sig/Valdo Route PRN Reason Start Time Stop Time Status Last Admin Dose Admin Charcoal/Sorbitol (Actidose (Sorbitol)) 50 gm ONCE ONCE PO 10/25/16 08:00 10/25/16 08:01 DC 10/25/16 08:09 Procedures/MDM EKG: Rate/Rhythm: [Normal Sinus Rhythm] QRS, ST, T-waves: [No changes consistent w/ acute ischemia] Impression: [No evidence of ischemia or arrhythmia] This 41-year-old male presents to the emergency room after suicide attempt where he ingested 26 tabs of Seroquel according to the patient. I did look at this patient's previous medical records and it appears he was admitted last week and stated he ingested the exact same amount of Seroquel. The patient does not have his bottle of Seroquel. He has no altered mental status. When he was admitted previously he eloped from the floor. This patient was medically cleared. We contacted poison control who recommended 6 hours observation in the emergency room. This patient has had no signs of mental decompensation in the emergency room. He is ambulate without difficulty. Tele- psych physician has deemed this patient a threat to himself and the patient will be transferred to an inpatient psychiatric center. Patient presents with symptomatology consistent with the decompensation of previously diagnosed psychiatric disease. Based on history, physical exam and appropriate lab tests , I appreciate no evidence of significant life-threatening injury or illness that includes a psychiatric hospitalization. Patient is thus "medically clear" for psychiatric admission. In regards to the psychiatric complaints, this patient has clear evidence of high risk psychiatric symptoms with significant risk for decompensation, thus requiring admission to the hospital for stabilization. Smoking Cessation Therapy: Pt. was lectured for greater than 3 minutes on the health risks of continued smoking and the benefits of cessation. Departure Diagnosis: Primary Impression: Intentional drug overdose Additional Impressions: Tobacco abuse Tobacco abuse counseling Condition: BLAKE Rose DO Oct 25, 2016 13:28
[2016-10-26] MEDS ORDERED: IBUPROFEN 800 MG TAB PO ONE (09:00)
[2016-10-26] MEDS ORDERED: LISINOPRIL 10 MG TAB PO ONE (09:00)
[2016-10-26 11:49] VITALS: BP 117/66; PULSE 66; RESP 18; TEMP 98.2
== END 2016-10-26 11:55 ==
LOC: E/R 07:23
DX: T43.592A Poisoning by other antipsychotics and neuroleptics, intentional self-harm, initial encounter (principal); R40.2142 Coma scale, eyes open, spontaneous, at arrival to emergency department; F17.210 Nicotine dependence, cigarettes, uncomplicated; R40.2252 Coma scale, best verbal response, oriented, at arrival to emergency department; R40.2362 Coma scale, best motor response, obeys commands, at arrival to emergency department; I10 Essential (primary) hypertension; Z71.6 Tobacco abuse counseling
CPT/HCPCS: 36415; 80053; 80076; 80306; 80307; 81001; 81003; 85025; 93005; Z7502; Z7610

== ENCOUNTER 2017-05-12 07:21 | Emergency (ER) | payer OTHER ==
[~2017-05-12] VITALS: Ht 167.6 cm; Wt 72.5 kg
[2017-05-12 07:24] VITALS: Ht 167.6 cm; Wt 72.5 kg
[2017-05-12 09:14] LABS: BASOPHILS % 0.7 % (0.0-2.0); EOSINOPHILS # 0.2 10^3/ul (0.0-0.5); EOSINOPHILS % 4.2 % (0.0-7.0); HEMATOCRIT 41.4 % (42.0-52.0); HEMOGLOBIN 13.8 g/dl (14.0-18.0); LYMPHOCYTES # 1.1 10^3/ul (0.8-2.9); LYMPHOCYTES % 24.3 % (15.0-51.0); MEAN CORPUSCULAR HEMOGLOBIN 29.6 pg (29.0-33.0); MEAN CORPUSCULAR HGB CONC 33.3 g/dl (32.0-37.0); MEAN CORPUSCULAR VOLUME 88.7 fl (82.0-101.0); MEAN PLATELET VOLUME 10.4 fl (7.4-10.4); MONOCYTE # 0.4 10^3/ul (0.3-0.9); MONOCYTES % 8.2 % (0.0-11.0); NEUTROPHIL # 2.8 10^3/ul (1.6-7.5); NEUTROPHILS % 62.4 % (39.0-77.0); PLATELET COUNT 178 10^3/UL (140-415); RED BLOOD COUNT 4.67 10^6/ul (4.70-6.10); RED CELL DISTRIBUTION WIDTH 13.6 % (11.5-14.5); WHITE BLOOD COUNT 4.5 10^3/ul (4.8-10.8)
[2017-05-12 09:29] LABS: ALANINE AMINOTRANSFERASE 46 IU/L (13-69); ALBUMIN 4.1 g/dl (3.3-4.9); ALBUMIN/GLOBULIN RATIO 1.51; ALKALINE PHOSPHATASE 90 IU/L (42-121); ANION GAP 14 (8-16); ASPARTATE AMINO TRANSFERASE 32 IU/L (15-46); BILIRUBIN,INDIRECT 0.5 mg/dl (0-1.1); BILIRUBIN,TOTAL 0.5 mg/dl (0.2-1.3); BLOOD UREA NITROGEN 16 mg/dl (7-20); CALCIUM 9.1 mg/dl (8.4-10.2); CARBON DIOXIDE 24 mmol/L (21-31); CHLORIDE 105 mmol/L (97-110); CREATININE 0.82 mg/dl (0.61-1.24); GLUCOSE 79 mg/dl (70-220); POTASSIUM 3.9 mmol/L (3.5-5.1); SODIUM 139 mmol/L (135-144); TOTAL PROTEIN 6.8 g/dl (6.1-8.1)
[2017-05-12 09:31] LABS: ACETAMINOPHEN < 10.0 ug/ml (10.0-30.0); ETHANOL < 10.0 mg/dl; SALICYLATE < 1.0 mg/dl (5.0-30.0)
[2017-05-12] MEDS ORDERED: ONDANSETRON (ODT) 4 MG TAB ODT ONE (09:58)
--- NOTE | 2017-05-12 11:06 | ERD ---
ER Documentation Chief Complaint Chief Complaint "i feel hopeless, i'm suicidal" plan: "finish what I started, lac on wrist HPI This is a 51-year-old male with a history of depression is complaining of suicidal thoughts with the plan. The patient states that he has been admitted to [facility] in the past. He states that for the past 2 weeks is gotten worse and feels very depressed with lots of worthless feelings and hopelessness. The patient states that he has a plan to commit suicide by cutting his wrists. He says he has tried this in the past. He said last night he went out with some friends to eat sushi and his friends put some meth in his sake. He is not complaining of any physical complaints his headache neck pain chest pain abdominal pain ROS All systems reviewed and are negative except as per history of present illness. Medications Home Meds Reported Medications Ibuprofen* (Ibuprofen*) 600 Mg Tablet, 600 MG PO Q8, TAB 10/19/16 Lisinopril* (Lisinopril*) 10 Mg Tablet, 10 MG PO DAILY, #30 TAB 10/19/16 Quetiapine Fumarate* (Seroquel*) 300 Mg Tablet, 300 MG PO HS, TAB 10/19/16 Gabapentin* (Gabapentin*) 600 Mg Tablet, 600 MG PO TID, #90 TAB 10/19/16 Citalopram Hydrobromide* (Citalopram Hydrobromide*) 20 Mg Tablet, 20 MG PO DAILY , #30 TAB 10/19/16 Atorvastatin (Atorvastatin) 10 Mg Tablet, 10 MG PO DAILY, #30 TAB 10/19/16 Risperidone* (Risperidone*) 2 Mg Tablet, 2 MG PO BID, TAB 10/19/16 Mirtazapine* (Mirtazapine*) 30 Mg Tablet, 30 MG PO HS, TAB 10/19/16 Phenytoin* Sodium Extended (Phenytoin* Sodium Extended) 300 Mg Capsule, 300 MG PO HS, CAP 10/19/16 Allergies Allergies: Coded Allergies: No Known Allergy (Unverified , 10/25/16) PMhx/Soc History of Surgery: No Anesthesia Reaction: No Hx Neurological Disorder: No Hx Respiratory Disorders: No Hx Cardiac Disorders: Yes (HTN) Hx Psychiatric Problems: Yes (Bipolar and Schizophrenia) Hx Miscellaneous Medical Probl: No Hx Alcohol Use: Yes Hx Substance Use: No Hx Tobacco Use: Yes (1 pack a day.) Smoking Status: Current every day smoker FmHx Family History: No coronary disease Physical Exam Vitals Vital Signs Date Time Temp Pulse Resp B/P Pulse Ox O2 Delivery O2 Flow Rate FiO2 05/12/17 07:24 97.8 91 20 147/71 98 Physical Exam Const: Well-developed, well-nourished Head: Atraumatic, normocephalic Eyes: Normal Conjunctiva, PERRLA, EOMI, normal sclera, no nystagmus ENT: Normal External Ears, Nose and Mouth, moist mucus membranes. Neck: Full range of motion. No meningismus, no lymphadenopathy. Resp: Clear to auscultation bilaterally, no wheezing, rhonchi, rales Cardio: Regular rate and rhythm, no murmurs, S1 S2 present Abd: Soft, non tender x 4, non distended. Normal bowel sounds, no guarding or rebound, no pulsitile abdominal masses or bruits Skin: No petechiae or rashes, no ecchymosis , no maculopapular rash Back: No midline or flank tenderness Ext: No cyanosis, or edema, FROM x 4, normal inspection, neurovascularly intact x 4 Neur: Awake and alert, STR 5/5 x 4, sensation intact x 4, no focal findings, cerebellum intact Psych: Admits to suicidal ideation with a plan Result Diagram: 05/12/1782905/12/1730 Results 24 hrs Laboratory Tests Test 05/12/17 08:30 White Blood Count 4.510^3/ul Red Blood Count 4.6710^6/ul Hemoglobin 13.8g/dl Hematocrit 41.4% Mean Corpuscular Volume 88.7fl Mean Corpuscular Hemoglobin 29.6pg Mean Corpuscular Hemoglobin Concent 33.3g/dl Red Cell Distribution Width 13.6% Platelet Count 76413^3/UL Mean Platelet Volume 10.4fl Neutrophils % 62.4% Lymphocytes % 24.3% Monocytes % 8.2% Eosinophils % 4.2% Basophils % 0.7% Nucleated Red Blood Cells % 0.0/100WBC Neutrophils # 2.810^3/ul Lymphocytes # 1.110^3/ul Monocytes # 0.410^3/ul Eosinophils # 0.210^3/ul Basophils # 0.010^3/ul Nucleated Red Blood Cells # 0.010^3/ul Sodium Level 139mmol/L Potassium Level 3.9mmol/L Chloride Level 105mmol/L Carbon Dioxide Level 24mmol/L Anion Gap 14 Blood Urea Nitrogen 16mg/dl Creatinine 0.82mg/dl Glucose Level 79mg/dl Calcium Level 9.1mg/dl Total Bilirubin 0.5mg/dl Direct Bilirubin 0.00mg/dl Indirect Bilirubin 0.5mg/dl Aspartate Amino Transf (AST/SGOT) 32IU/L Alanine Aminotransferase (ALT/SGPT) 46IU/L Alkaline Phosphatase 90IU/L Total Protein 6.8g/dl Albumin 4.1g/dl Globulin 2.70g/dl Albumin/Globulin Ratio 1.51 Salicylates Level < 1.0mg/dl Acetaminophen Level < 10.0ug/ml Ethyl Alcohol Level < 10.0mg/dl Current Medications Medications (Trade) Dose Ordered Sig/Valdo Route PRN Reason Start Time Stop Time Status Last Admin Dose Admin Ondansetron HCl (Zofran Odt) 4 mg STK-MED ONCE ODT 05/12/17 09:58 05/12/17 09:59 DC Procedures/MDM We will obtain blood work and urine drug screen and toxicology and then have psych evaluation with transfer to inpatient facility Departure Diagnosis: Primary Impression: Suicidal ideation Condition: Stable BARRY BETANCOURT DO May 12, 2017 11:06
[2017-05-12 11:34] LABS: BARBITURATES Negative (NEGATIVE)
[2017-05-12 11:45] LABS: BENZODIAZEPINES Negative (NEGATIVE); CANNABINOIDS Negative (NEGATIVE); COCAINE Negative (NEGATIVE); OPIATES Negative (NEGATIVE)
--- NOTE | 2017-05-12 14:04 | PSY ---
Date/Time of Note Date/Time of Note DATE: 05/12/17 TIME: 14:00 Psychiatric Subjective Eval Consent Pt consented to telemedicine: Yes Subjective Evaluation Patient location: emergency Chief Complaint: "i feel hopeless, i'm suicidal" plan: "finish what I started, lac on wrist History of present illness 51 yo homeless male self presenting to ED c/o active Si with a plan to OD on his psych meds. "I don't have enough though". + command AH telling him to kill himself, + paranoia, no HI, no VH. Depressed, irritable, hopeless. UDS + amph "Some one put meth in my sake". Poor sleep, irritable. On Seroquel, Risperidone. Past psychiatric history prior inpt; hx prio rSA 09/06 released after 12 years in detention Hospitalization: Suicidal Attempt(s) Family History denies Medical history Problems Medical Problems: (1) Alcohol abuse Status: Acute (2) Anemia Status: Acute (3) Intentional drug overdose Status: Acute (4) Intentional drug overdose Status: Acute (5) Suicidal ideation Status: Acute (6) Suicide attempt by substance overdose Status: Acute (7) Tobacco abuse Status: Acute (8) Tobacco abuse counseling Status: Acute Allergies: Coded Allergies: No Known Allergy (Unverified , 10/25/16) Substance Abuse Substance abuse history: Yes Prior substance abuse treatmen: Yes Social History Marital status: single Level of education: 11th DPA/Conservatorship: No Occupation/Penitentiary: on [facility] Psychiatric Objective Eval Review of Systems: Review of Systems: Not Applicable Physical Examination: Physical Examination: Not Applicable Sleep: Insomnia Appetite: Decreased Energy: Decreased Interest: Decreased Mental Status Examination: Appearance: Disheveled Eye Contact: Good Psychomotor Activity: Normal Behavior: Cooperative Speech: Clear AFFECT: Appropriate Mood: Irritable Though Process: Linear Thought Content: Hallucinations Suicidal: Yes Homicidal: No On 72 hour hold: No Orientation: x3 Cognition: Alert Insight: Impared Judgement: Impared Laboratory Results Laboratory Tests Test 05/12/17 08:30 05/12/17 10:25 White Blood Count 4.510^3/ul Red Blood Count 4.6710^6/ul Hemoglobin 13.8g/dl Hematocrit 41.4% Mean Corpuscular Volume 88.7fl Mean Corpuscular Hemoglobin 29.6pg Mean Corpuscular Hemoglobin Concent 33.3g/dl Red Cell Distribution Width 13.6% Platelet Count 97890^3/UL Mean Platelet Volume 10.4fl Neutrophils % 62.4% Lymphocytes % 24.3% Monocytes % 8.2% Eosinophils % 4.2% Basophils % 0.7% Nucleated Red Blood Cells % 0.0/100WBC Neutrophils # 2.810^3/ul Lymphocytes # 1.110^3/ul Monocytes # 0.410^3/ul Eosinophils # 0.210^3/ul Basophils # 0.010^3/ul Nucleated Red Blood Cells # 0.010^3/ul Sodium Level 139mmol/L Potassium Level 3.9mmol/L Chloride Level 105mmol/L Carbon Dioxide Level 24mmol/L Anion Gap 14 Blood Urea Nitrogen 16mg/dl Creatinine 0.82mg/dl Glucose Level 79mg/dl Calcium Level 9.1mg/dl Total Bilirubin 0.5mg/dl Direct Bilirubin 0.00mg/dl Indirect Bilirubin 0.5mg/dl Aspartate Amino Transf (AST/SGOT) 32IU/L Alanine Aminotransferase (ALT/SGPT) 46IU/L Alkaline Phosphatase 90IU/L Total Protein 6.8g/dl Albumin 4.1g/dl Globulin 2.70g/dl Albumin/Globulin Ratio 1.51 Salicylates Level < 1.0mg/dl Acetaminophen Level < 10.0ug/ml Ethyl Alcohol Level < 10.0mg/dl Urine Opiates Screen Negative Urine Barbiturates Negative Urine Amphetamines Screen Positive Urine Benzodiazepines Screen Negative Urine Cocaine Screen Negative Urine Cannabinoids Negative Assessment and Plan Assessment/Diagnosis [place] I: Schizoaffective disorder; amphetamine use disorder [place] II: antisocial PD [place] III: as per record [place] IV: severe [place] V: GAF 25 Recommendation/Plan Medication Management Seroquel 1000 mg po BID and 300 mg po qhs Psychotherapy defer to inpt Follow-up/Disposition 5150 for dts; transfr to inpt psych. 5150 Recommendation: GARDENIA Vitale MD May 12, 2017 14:03
[2017-05-13 05:30] VITALS: BP 150/93; PULSE 88; RESP 18; TEMP 98.5
[2017-05-13] MEDS ORDERED: LISINOPRIL 10 MG TAB PO ONE (06:00)
[2017-05-13] MEDS ORDERED: PHENYTOIN 100 MG CAP PO ONE (06:00)
--- NOTE | 2017-05-13 08:17 | PSY ---
Date/Time of Note Date/Time of Note DATE: 05/13/17 TIME: 08:11 Psychiatric Subjective Eval Consent Pt consented to telemedicine: Yes Subjective Evaluation Patient location: emergency Chief Complaint: "I need to be treated for my seizures" History of present illness 51 yo homeless male, released from [facility] earlier this year after 12 years of incarceration, seen by this MD nithin, made a sucidal statement. Pt says now he would be fine if he would be placed somewhere and refered to get food stamps. He is future oriented, worries about his health, wants to find a place to stay. UDS + amphetamines Denies no SI or HI ("I ll be fine if you find me a place to stay") , reprots no AH or VH. No aggressive bhx or agitati. Past psychiatric history prior treatments Hospitalization: yes Family History denies Medical history Problems Medical Problems: (1) Alcohol abuse Status: Acute (2) Anemia Status: Acute (3) Intentional drug overdose Status: Acute (4) Intentional drug overdose Status: Acute (5) Suicidal ideation Status: Acute (6) Suicide attempt by substance overdose Status: Acute (7) Tobacco abuse Status: Acute (8) Tobacco abuse counseling Status: Acute Allergies: Coded Allergies: No Known Allergy (Unverified , 10/25/16) Substance Abuse Substance abuse history: Yes Prior substance abuse treatmen: Yes Social History Marital status: single Level of education: 11th DPA/Conservatorship: No Occupation/Care Home: on ssi Psychiatric Objective Eval Mental Status Examination: Appearance: Disheveled Eye Contact: Good Psychomotor Activity: Normal Behavior: Cooperative Speech: Clear AFFECT: Guarded Mood: Irritable Though Process: Linear Thought Content: Normal Suicidal: No Homicidal: No On 72 hour hold: No Orientation: x4 Cognition: Alert Insight: Impared Judgement: Impared Laboratory Results Laboratory Tests Test 05/12/17 08:30 05/12/17 10:25 White Blood Count 4.510^3/ul Red Blood Count 4.6710^6/ul Hemoglobin 13.8g/dl Hematocrit 41.4% Mean Corpuscular Volume 88.7fl Mean Corpuscular Hemoglobin 29.6pg Mean Corpuscular Hemoglobin Concent 33.3g/dl Red Cell Distribution Width 13.6% Platelet Count 12399^3/UL Mean Platelet Volume 10.4fl Neutrophils % 62.4% Lymphocytes % 24.3% Monocytes % 8.2% Eosinophils % 4.2% Basophils % 0.7% Nucleated Red Blood Cells % 0.0/100WBC Neutrophils # 2.810^3/ul Lymphocytes # 1.110^3/ul Monocytes # 0.410^3/ul Eosinophils # 0.210^3/ul Basophils # 0.010^3/ul Nucleated Red Blood Cells # 0.010^3/ul Sodium Level 139mmol/L Potassium Level 3.9mmol/L Chloride Level 105mmol/L Carbon Dioxide Level 24mmol/L Anion Gap 14 Blood Urea Nitrogen 16mg/dl Creatinine 0.82mg/dl Glucose Level 79mg/dl Calcium Level 9.1mg/dl Total Bilirubin 0.5mg/dl Direct Bilirubin 0.00mg/dl Indirect Bilirubin 0.5mg/dl Aspartate Amino Transf (AST/SGOT) 32IU/L Alanine Aminotransferase (ALT/SGPT) 46IU/L Alkaline Phosphatase 90IU/L Total Protein 6.8g/dl Albumin 4.1g/dl Globulin 2.70g/dl Albumin/Globulin Ratio 1.51 Salicylates Level < 1.0mg/dl Acetaminophen Level < 10.0ug/ml Ethyl Alcohol Level < 10.0mg/dl Urine Opiates Screen Negative Urine Barbiturates Negative Urine Amphetamines Screen Positive Urine Benzodiazepines Screen Negative Urine Cocaine Screen Negative Urine Cannabinoids Negative Assessment and Plan Assessment/Diagnosis [place] I: Unsoecified mood disorder. Alcohol use disorder. Amphetamine use disorder [place] II: Antisocial pd [place] III: HTN Seizure d.o [place] IV: severe [place] V: GAF 40 Recommendation/Plan Medication Management COntinue Seroquel 100 mg poqam and 300 mg poqhs Psychotherapy defer to outpt Pt. Caregiver/Family Education na Follow-up/Disposition d/w Dr Baldwin. Pt is clearly interested in a placement; he states he will be fine if found a place to stay. Burn Table Operator - please refer to a sober living and provide information on applying for GR, food stamps. Refer to outpt mental health and 12 step meetings. [id number] Recommendation: GARDENIA Wilkins MD May 13, 2017 08:17
[2017-05-13] MEDS ORDERED: QUETIAPINE 100 MG TAB PO SCH ×2 (09:00→21:00)
== END 2017-05-13 09:16 | disposition home or self-care (01) ==
LOC: E/R 07:21
DX: F32.9 Major depressive disorder, single episode, unspecified (principal); I10 Essential (primary) hypertension; F17.210 Nicotine dependence, cigarettes, uncomplicated; R45.851 Suicidal ideations
CPT/HCPCS: 80053; 80306; 80307; 85025; Z7502; Z7610; 99283